=== PATIENT | female | born 1980 | race Caucasian/White ===

== ENCOUNTER 2018-12-31 10:26 | Observation (INO) ==
[2018-12-31] MEDS ORDERED: NS 1000 ML 1,000 ML IV ONE (11:49)
[2018-12-31 12:10] VITALS: BMI 22.1
[2018-12-31] MEDS ORDERED: TORADOL 30 MG VIAL ONE (12:11)
[2018-12-31] MEDS: TORADOL 30 MG VIAL IVP SCH ×3 (12:15→23:43)
[2018-12-31 12:20] LABS: BASOPHILS % (AUTO) 0.4 % (0.2-1.0); EOSINOPHILS # (AUTO) 0.2 x10^3/uL (0.0-0.2); EOSINOPHILS % (AUTO) 1.6 % (0.9-2.9); HEMOGLOBIN 13.6 g/dL (12.0-16.0); LYMPHOCYTES # (AUTO) 1.3 X10^3/uL (1.3-2.9); LYMPHOCYTES % (AUTO) 11.3 % (21.0-51.0); MEAN CORPUSCULAR HEMOGLOBIN 32.1 pg (27.0-34.0); MEAN CORPUSCULAR HGB CONC 34.9 g/dL (33.0-35.0); MEAN CORPUSCULAR VOLUME 92.1 fL (80.0-100.0); MEAN PLATELET VOLUME 7.7 fL (7.4-11.0); MONOCYTES # (AUTO) 0.5 x10^3/uL (0.3-0.8); MONOCYTES % (AUTO) 4.7 % (0.0-13.0); NEUTROPHILS # (AUTO) 9.2 x10^3/uL (2.2-4.8); PLATELET COUNT 248 X10^3/uL (150.0-450.0); RED BLOOD COUNT 4.24 X10^6/uL (3.5-5.4); RED CELL DISTRIBUTION WIDTH 12.8 % (11.6-16.5); WHITE BLOOD COUNT 11.2 X10^3/uL (3.6-10.0)
[2018-12-31] MEDS: ZOFRAN INJ 4 MG VIAL IVP PRN ×2 (12:27→17:19)
[2018-12-31] MEDS: RIFADIN PO SCH ×2 (12:28→21:54)
[2018-12-31] MEDS: ROCEPHIN VIAL 1 GRAM 1 G in NS 100 ML IV + SPIKE MINIBAG* 100 ML IV SCH ×2 (12:29→20:41)
[2018-12-31] MEDS: NS 1000 ML 1,000 ML IV SCH (12:29)
[2018-12-31 12:30] LABS: SERUM PREGNANCY TEST, QUAL NEGATIVE <10 mIU/mL
[2018-12-31 12:31] LABS: ALANINE AMINOTRANSFERASE 13 Units/L (12-78); ALBUMIN 4.3 g/dL (3.4-5.0); ALKALINE PHOSPHATASE 85 Units/L (46-116); ASPARTATE AMINO TRANSFERASE 12 Units/L (15-37); BLOOD UREA NITROGEN 16 mg/dL (7-18); CARBON DIOXIDE 32.1 mmol/L (21-32); CHLORIDE 101 mmol/L (98-107); CREATININE 0.82 mg/dL (0.55-1.02); SODIUM 139 mmol/L (136-145); TOTAL PROTEIN 7.7 g/dL (6.4-8.2); eGFR NON BLACK RACES > 60 (>60)
--- NOTE | 2018-12-31 12:58 | RAD ---
HISTORY: Cellulitis to right face Study: Single-view chest, done portably Comparison: No priors Findings: Trachea is midline. Heart size is normal. Lungs and pleural spaces are clear. Osseous structures are intact. IMPRESSION: Negative chest. Reported By:
[2018-12-31] MEDS: CIPRO IV 400 MG PREMIX* 400 MG/200 ML IV.SOLN. IV SCH ×2 (14:00→21:55)
[2018-12-31] MEDS: SOLU-Medrol 40 MG VIAL IVP SCH ×2 (14:28→21:52)
[2018-12-31] MEDS: DILAUDID INJ IVP PRN (14:28)
[2018-12-31] MEDS: HYDROGEN PEROXIDE 3% EXT SCH ×2 (14:29→20:42)
[2018-12-31] MEDS ORDERED: K-DUR TAB 20 MEQ PO ONE (20:32)
[2019-01-01] MEDS: NS 1000 ML 1,000 ML IV SCH ×3 (02:12→14:21)
[2019-01-01] MEDS: TORADOL 30 MG VIAL IVP SCH ×4 (05:33→23:30)
[2019-01-01] MEDS: SOLU-Medrol 40 MG VIAL IVP SCH ×3 (05:34→22:40)
[2019-01-01 05:43] LABS: BASOPHILS % (AUTO) 0.1 % (0.2-1.0); HEMATOCRIT 35.1 % (36.0-47.0); HEMOGLOBIN 12.2 g/dL (12.0-16.0); LYMPHOCYTES # (AUTO) 0.3 X10^3/uL (1.3-2.9); LYMPHOCYTES % (AUTO) 2.7 % (21.0-51.0); MEAN CORPUSCULAR HEMOGLOBIN 32.3 pg (27.0-34.0); MEAN CORPUSCULAR HGB CONC 34.8 g/dL (33.0-35.0); MEAN CORPUSCULAR VOLUME 92.7 fL (80.0-100.0); MEAN PLATELET VOLUME 8.1 fL (7.4-11.0); MONOCYTES # (AUTO) 0.2 x10^3/uL (0.3-0.8); MONOCYTES % (AUTO) 1.6 % (0.0-13.0); NEUTROPHILS # (AUTO) 10.5 x10^3/uL (2.2-4.8); NEUTROPHILS % (AUTO) 95.6 % (42.0-75.0); PLATELET COUNT 236 X10^3/uL (150.0-450.0); RED BLOOD COUNT 3.79 X10^6/uL (3.5-5.4); RED CELL DISTRIBUTION WIDTH 12.6 % (11.6-16.5)
[2019-01-01 05:57] LABS: PLATELET MORPHOLOGY COMMENT NORMAL (NORMAL)
[2019-01-01 06:03] LABS: ALANINE AMINOTRANSFERASE 15 Units/L (12-78); ALBUMIN 3.4 g/dL (3.4-5.0); ALKALINE PHOSPHATASE 94 Units/L (46-116); ASPARTATE AMINO TRANSFERASE 9 Units/L (15-37); BLOOD UREA NITROGEN 12 mg/dL (7-18); CALCIUM 8.4 mg/dL (8.5-10.1); CARBON DIOXIDE 26.1 mmol/L (21-32); CHLORIDE 106 mmol/L (98-107); COR NA(FOR HYPERGLY) 143 mmol/L (136-145); CREATININE 0.79 mg/dL (0.55-1.02); SODIUM 140 mmol/L (136-145); TOTAL PROTEIN 6.4 g/dL (6.4-8.2); eGFR NON BLACK RACES > 60 (>60)
[2019-01-01] MEDS: ROCEPHIN VIAL 1 GRAM 1 G in NS 100 ML IV + SPIKE MINIBAG* 100 ML IV SCH ×2 (08:15→20:18)
[2019-01-01] MEDS ORDERED: BACITRACIN ZINC ONE (09:05)
[2019-01-01] MEDS: DILAUDID INJ IVP PRN ×3 (09:11→20:20)
[2019-01-01] MEDS: RIFADIN PO SCH ×2 (09:13→20:18)
[2019-01-01] MEDS: HYDROGEN PEROXIDE 3% EXT SCH ×2 (09:13→21:10)
[2019-01-01] MEDS: CIPRO IV 400 MG PREMIX* 400 MG/200 ML IV.SOLN. IV SCH ×2 (09:13→21:48)
[2019-01-01 10:28] LABS: APPEARANCE,URINE CLEAR (CLEAR); COLOR,URINE ORANGE (YELLOW)
[2019-01-01 10:29] LABS: BACTERIA,URINE NEGATIVE /HPF (NEGATIVE); RBC,URINE 0-2 /HPF (0-3); SQUAMOUS EPITHELIAL CELL,UR RARE /HPF (NEGATIVE)
--- NOTE | 2019-01-01 10:34 | DR.H&P ---
H&P - History & Physical for Day of: H&P Date: 12/31/18 - Chief Complaint Chief Complaint: RIGHT SIDED FACIAL REDNESS AND SWELLING - History of Present Illness History of Present Illness: IS A 38 YEAR OLD PATIENT OF OURS. SHE IS A DIRECT ADMISSION FOR RIGHT SIDED FACIAL AND EAR CELLULITIS DUE TO A SUSPECTED INSECT BITE. PATIENT REPORTED THAT SWELLING AND REDNESS STARTED TWO DAYS AGO AND HAS PROGRESSIVELY GOTTEN WORSE. SHE REPORTS PRESSURE BEHIND RIGHT EYE. SHE REPORTS USING WARM COMPRESSES AT HOME WITHOUT SIGNIFICANT RELIEF. THERE IS NOW PURULENT DRAINAGE AND SKIN ULCERATION. ON ARRIVAL TO THE HOSPITAL, VITALS WERE 97.7-102-18-98%-109/65. LABS WERE OBTAINED. ABNORMAL LAB VALUES INCLUDE THE FOLLOWING: WBC 11.2, POTASSIUM 3.1, CARBON DIOXIDE 32.1, AST 12. BLOOD AND WOUND CULTURES WERE OBTAINED. A CHEST XRAY WAS OBTAINED AND WAS NEGATIVE. WE WILL START CIPRO 400MG IV Q12H, RIFAMPIN 300MG PO BID, AND TORADOL 30MG IV Q6H. WE WILL CONSULT , GENERAL SURGEON. OTHERWISE, WE WILL FOLLOW UP WITH AM LABS AND CONTINUE TO MONITOR. - Past Surgical History Additional Surgical History: PARTIAL LEFT NEPHRECTOMY, BREAST AUGMENTATION - Social History Does patient currently use any type of tobacco product: No Have you used tobacco products in the last 12 months: No Type of Tobacco Use: None Does any household member use tobacco: No Alcohol Use: Occasionally Drug Use: None - Medications Home Medications: vancomycin Adverse Reaction (Verified 12/31/18 11:36) CONTINUE taking the following medications NK 12/31/18 [History] - Review of Systems Constitutional: Fever Eyes: No Symptoms Reported ENT: No Symptoms Reported Respiratory: No Symptoms Reported Cardiovascular: No Symptoms Reported Gastrointestinal: No Symptoms Reported Genitourinary: No Symptoms Reported Musculoskeletal: No Symptoms Reported Skin: Wound (RIGHT TEMPORAL/EAR AREA) Neurological: No Symptoms Reported - Physical Exam Vital Signs: Temperature 98.4 F Pulse Rate [Left Brachial] 60 Respiratory Rate 18 Blood Pressure [Right Arm] 112/49 Blood Pressure [Left Arm] 88/50 O2 Sat by Pulse Oximetry 99 Oriented: Normal Eyes: Normal Ear: Normal Nose: Normal Throat: Normal Respiratory: Clear Throughout Cardiovascular: Tachycardia : Normal Auscultation: Bowel Sounds: Normal Palpation: Normal Tenderness: Normal Skin: Red, Tender, Hot, Wound (SWELLING,ERYTHEMA TO THE RIGHT JAW/TEMPORAL/EAR AREA ) Musculoskeletal: Normal Psychiatric: Normal Mood Description: Calm Affect: Normal Speech Pattern: Clear - Assessment/Plan (1) Facial cellulitis Status: Acute Plan: IV CIPRO, RIFAMPIN, TORADOL, SURGICAL CONSULT, WOUND AND BLOOD CULTURES - Review Patient was examined?: Yes - Allergies Allergies/Adverse Reactions: Allergies Allergy/AdvReac Type Severity Reaction Status Date / Time vancomycin AdvReac Verified 12/31/18 11:36
[2019-01-01] MEDS: ZOFRAN INJ 4 MG VIAL IVP PRN (12:04)
--- NOTE | 2019-01-01 22:27 | PCM.PROG ---
Progress Note - Progress Note for Day of Date of Exam: 01/01/19 - Subjective Subjective: WAS ADMITTED FOR RIGHT SIDED FACIAL CELLULITIS. TODAY, SHE IS ALERT AND ORIENTED, LYING IN BED ON MORNING ROUNDS. FACIAL EDEMA AND REDNESS HAS GREATLY DECREASED SINCE ADMISSION. CONSULTED WITH HER YESTERDAY AND STARTED SOLU-MEDROL AND ROCEPHIN. HER VITALS THIS MORNING ARE: 98.4-60-18-99%-112/49. LABS WERE OBTAINED. ABNORMAL LAB VALUES INCLUDE THE FOLLOWING: WBC 11.0, HCT 35.1, GLUCOSE 220, CALCIUM 8.4, AST 9. WOUND AND BLOOD CULTURES ARE PENDING. SHE IS CURRENTLY RECEIVING IV CIPRO, IV ROCEPHIN, AND RIFAMPIN 300MG PO BID. WE WILL CONTINUE WITH CURRENT PLAN OF CARE TODAY. OTHERWISE, WE WILL FOLLOW UP WITH AM LABS AND CONTINUE TO MONITOR. - Past Medical Family Social History Past Med/Fam/Surg Hx: No changes since H&P Allergies: Allergies vancomycin Adverse Reaction (Verified 12/31/18 11:36) - Review of Systems ROS: No change since H&P - Vital Signs and I&O's Vital Signs: Temperature 97.7 F Pulse Rate [Left Brachial] 80 Respiratory Rate 20 Blood Pressure [Right Arm] 89/45 Blood Pressure [Left Arm] 88/50 O2 Sat by Pulse Oximetry 99 Intake and Output: Intake & Output 12/30/18 12/31/18 01/01/19 01/02/19 11:59 11:59 11:59 11:59 Intake Total 2342 / 2342 1490 / 1490 Output Total 0 / 0 Balance 2342 / 2342 1490 / 1490 - Physical Exam Oriented: Normal Eyes: Normal Ear: Normal Nose: Normal Throat: Normal Respiratory: Normal Cardiovascular: Normal : Normal Auscultation: Bowel Sounds: Normal Palpation: Normal Tenderness: Normal Skin: Red, Tender, Hot, Wound (SWELLING,ERYTHEMA TO THE RIGHT JAW/TEMPORAL/EAR AREA ) Musculoskeletal: Normal Psychiatric: Normal Mood Description: Calm Affect: Normal Speech Pattern: Clear, Appropriate - Laboratory and Diagnostics Result Diagrams: 01/01/19 05:08 01/01/19 05:08 Labs: 12/31/18 15:45 Face Gram Stain - Final 12/31/18 15:45 Face Wound Culture - Preliminary Laboratory WBC 11.0 X10^3/uL (3.6-10.0) H 01/01/19 05:08 RBC 3.79 X10^6/uL (3.5-5.4) 01/01/19 05:08 Hgb 12.2 g/dL (12.0-16.0) 01/01/19 05:08 Hct 35.1 % (36.0-47.0) L 01/01/19 05:08 MCV 92.7 fL (80.0-100.0) 01/01/19 05:08 MCH 32.3 pg (27.0-34.0) 01/01/19 05:08 MCHC 34.8 g/dL (33.0-35.0) 01/01/19 05:08 RDW 12.6 % (11.6-16.5) 01/01/19 05:08 Plt Count 236 X10^3/uL (150.0-450.0) 01/01/19 05:08 Plt Count Comment Adequate (ADEQUATE) 01/01/19 05:08 MPV 8.1 fL (7.4-11.0) 01/01/19 05:08 Neut % (Auto) 95.6 % (42.0-75.0) H 01/01/19 05:08 Lymph % (Auto) 2.7 % (21.0-51.0) L 01/01/19 05:08 [place] % (Auto) 1.6 % (0.0-13.0) 01/01/19 05:08 Eos % (Auto) 0.0 % (0.9-2.9) L 01/01/19 05:08 Baso % (Auto) 0.1 % (0.2-1.0) L 01/01/19 05:08 Neut # (Auto) 10.5 x10^3/uL (2.2-4.8) H 01/01/19 05:08 Lymph # (Auto) 0.3 X10^3/uL (1.3-2.9) L 01/01/19 05:08 [place] # (Auto) 0.2 x10^3/uL (0.3-0.8) L 01/01/19 05:08 Eos # (Auto) 0.0 x10^3/uL (0.0-0.2) 01/01/19 05:08 Baso # (Auto) 0.0 X10^3/uL (0.0-0.1) 01/01/19 05:08 Absolute Nucleated RBC 0.0 /100WBC 01/01/19 05:08 Total Counted 100 01/01/19 05:08 Neutrophils % (Manual) 98 % (39-76) H 01/01/19 05:08 Lymphocytes % (Manual) 2 % (13-43) L 01/01/19 05:08 Plt Morphology Comment Normal (NORMAL) 01/01/19 05:08 RBC Morphology Normal (NORMAL) 01/01/19 05:08 PT 13.5 SECONDS (11.8-14.3) 12/31/18 16:27 INR Target Range - 12/31/18 16:27 INR 1.07 (0.8-1.3) 12/31/18 16:27 Sodium 140 mmol/L (136-145) 01/01/19 05:08 Corrected Sodium 143 mmol/L (136-145) 01/01/19 05:08 Potassium 3.7 mmol/L (3.5-5.1) 01/01/19 05:08 Chloride 106 mmol/L (98-107) 01/01/19 05:08 Carbon Dioxide 26.1 mmol/L (21-32) 01/01/19 05:08 BUN 12 mg/dL (7-18) 01/01/19 05:08 Creatinine 0.79 mg/dL (0.55-1.02) 01/01/19 05:08 Est GFR (MDRD) Af Amer > 60 (>60) 01/01/19 05:08 Est GFR (MDRD) Non-Af > 60 (>60) 01/01/19 05:08 Glucose 220 mg/dL (65-99) H 01/01/19 05:08 Lactic Acid 1.0 mmol/L (0.4-2.0) 12/31/18 11:57 Calcium 8.4 mg/dL (8.5-10.1) L 01/01/19 05:08 Corrected Calcium TNP 01/01/19 05:08 Magnesium 2.1 mg/dL (1.7-2.9) 12/31/18 11:57 Total Bilirubin 0.40 mg/dL (0.2-1.0) 01/01/19 05:08 AST 9 Units/L (15-37) L 01/01/19 05:08 ALT 15 Units/L (12-78) 01/01/19 05:08 Alkaline Phosphatase 94 Units/L (46-116) 01/01/19 05:08 Total Protein 6.4 g/dL (6.4-8.2) 01/01/19 05:08 Albumin 3.4 g/dL (3.4-5.0) 01/01/19 05:08 Globulin 3.0 g/dL (2.5-4.5) 01/01/19 05:08 Albumin/Globulin Ratio 1.1 Ratio (1.1-2.1) 01/01/19 05:08 HCG, Qual Negative <10 mIU/mL 12/31/18 11:57 Specimen Type Clean catch urine 01/01/19 09:24 Urine Color [place] (YELLOW) 01/01/19 09:24 Urine Appearance Clear (CLEAR) 01/01/19 09:24 Urine pH Cancelled 01/01/19 09:24 Ur Specific [place] Cancelled 01/01/19 09:24 Urine Protein Cancelled 01/01/19 09:24 Urine Glucose (UA) Cancelled 01/01/19 09:24 Urine Ketones Cancelled 01/01/19 09:24 Urine Occult Blood Cancelled 01/01/19 09:24 Urine Nitrite Cancelled 01/01/19 09:24 Urine Bilirubin Cancelled 01/01/19 09:24 Urine Urobilinogen Cancelled 01/01/19 09:24 Ur Leukocyte Esterase Cancelled 01/01/19 09:24 Urine RBC 0-2 /HPF (0-3) 01/01/19 09:24 Urine WBC 0-2 /HPF (0-5) 01/01/19 09:24 Ur Squamous Epith Cells Rare /HPF (NEGATIVE) 01/01/19 09:24 Urine Bacteria Negative /HPF (NEGATIVE) 01/01/19 09:24 Ur Culture Indicated? No/not indicated 01/01/19 09:24 - Plan (1) Facial cellulitis Status: Acute Plan: IV CIPRO, RIFAMPIN, ROCEPHIN, TORADOL, WOUND AND BLOOD CULTURES
[2019-01-02] MEDS: NS 1000 ML 1,000 ML IV SCH (00:30)
[2019-01-02] MEDS: TORADOL 30 MG VIAL IVP SCH (05:25)
[2019-01-02] MEDS: SOLU-Medrol 40 MG VIAL IVP SCH (05:26)
[2019-01-02 06:20] LABS: BASOPHILS # (AUTO) 0.1 X10^3/uL (0.0-0.1); BASOPHILS % (AUTO) 0.4 % (0.2-1.0); EOSINOPHILS % (AUTO) 0.1 % (0.9-2.9); HEMATOCRIT 32.2 % (36.0-47.0); HEMOGLOBIN 11.1 g/dL (12.0-16.0); LYMPHOCYTES # (AUTO) 0.8 X10^3/uL (1.3-2.9); LYMPHOCYTES % (AUTO) 4.6 % (21.0-51.0); MEAN CORPUSCULAR HEMOGLOBIN 32.3 pg (27.0-34.0); MEAN CORPUSCULAR HGB CONC 34.5 g/dL (33.0-35.0); MEAN CORPUSCULAR VOLUME 93.7 fL (80.0-100.0); MEAN PLATELET VOLUME 8.9 fL (7.4-11.0); MONOCYTES # (AUTO) 0.5 x10^3/uL (0.3-0.8); NEUTROPHILS # (AUTO) 15.6 x10^3/uL (2.2-4.8); NEUTROPHILS % (AUTO) 91.9 % (42.0-75.0); PLATELET COUNT 218 X10^3/uL (150.0-450.0); RED BLOOD COUNT 3.44 X10^6/uL (3.5-5.4); RED CELL DISTRIBUTION WIDTH 13.4 % (11.6-16.5); WHITE BLOOD COUNT 16.9 X10^3/uL (3.6-10.0)
[2019-01-02 06:39] LABS: ALANINE AMINOTRANSFERASE 17 Units/L (12-78); ALKALINE PHOSPHATASE 77 Units/L (46-116); ASPARTATE AMINO TRANSFERASE 13 Units/L (15-37); BLOOD UREA NITROGEN 15 mg/dL (7-18); CALCIUM 8.2 mg/dL (8.5-10.1); CARBON DIOXIDE 23.4 mmol/L (21-32); CHLORIDE 109 mmol/L (98-107); COR NA(FOR HYPERGLY) 141 mmol/L (136-145); CREATININE 0.68 mg/dL (0.55-1.02); SODIUM 141 mmol/L (136-145); TOTAL PROTEIN 5.8 g/dL (6.4-8.2); eGFR NON BLACK RACES > 60 (>60)
[2019-01-02 07:11] LABS: PLATELET MORPHOLOGY COMMENT NORMAL (NORMAL)
[2019-01-02] MEDS: ROCEPHIN VIAL 1 GRAM 1 G in NS 100 ML IV + SPIKE MINIBAG* 100 ML IV SCH (09:12)
[2019-01-02] MEDS: RIFADIN PO SCH (09:15)
[2019-01-02] MEDS: HYDROGEN PEROXIDE 3% EXT SCH (09:19)
[2019-01-02 09:41] VITALS: BP 104/63
[2019-01-02] MEDS: CIPRO IV 400 MG PREMIX* 400 MG/200 ML IV.SOLN. IV SCH (09:55)
== END 2019-01-02 10:55 | disposition home or self-care (01) ==
LOC: MED/SURG
PROVIDERS: ADMIT Internal Medicine; ATTEND Internal Medicine
DX: D68.0 Von Willebrand disease; R20.0 Anesthesia of skin; B95.62 Methicillin resistant Staphylococcus aureus infection as the cause of diseases classified elsewhere; L03.211 Cellulitis of face; H60.11 Cellulitis of right external ear; X58.XXXA Exposure to other specified factors, initial encounter; S00.86XA Insect bite (nonvenomous) of other part of head, initial encounter
CPT/HCPCS: 36415; 71010; 71045; 80053; 83605; 83735; 84703; 85025; 85610; 87040; 87070; 87075; 87077; 87186; 87205; 96360; 96361; 96374; A4216; A4222; G0378; J0696; J0744; J1170; J1885; J2405; J2920; J7030; J7050